=== PATIENT | male | born 1960 | race African-American/Black ===

== ENCOUNTER 2018-08-04 13:02 | Inpatient (IN) | payer OTHER ==
--- NOTE | 2018-08-04 12:51 | HP ---
"CIWA Score - Admission Criteria [facility]ASAS Guidelines: Admission for Medically Managed Detox: Requires at least one of the followin. CIWA greater than 12 2. Seizures within the past 24 hours 3. Delirium tremens within the past 24 hours 4. Hallucinations within the past 24 hours 5. Acute intervention needed for co occurring medical disorder 6. Acute intervention needed for co occurring psychiatric disorder 7. Severe withdrawal that cannot be handled at a lower level of care (continued vomiting, continued diarrhea, abnormal vital signs) requiring intravenous medication and/or fluids 8. Admission ROS [facility] Allergies/Adverse Reactions: Allergies Allergy/AdvReac Type Severity Reaction Status Date / Time No Known Allergies Allergy Verified 08/04/18 14:26 History of Present Illness: Search Terms: Erich Martinez, 1960 Search Date: 08/04/2018 12:50:48 PM The Drug Utilization Report below displays all of the controlled substance prescriptions, if any, that your patient has filled in the last twelve months. The information displayed on this report is compiled from pharmacy submissions to the Department, and accurately reflects the information as submitted by the pharmacies. This report was requested by: Elise Edmonds | Reference #: [id number] There are no results for the search terms that you entered. Patient History - Substances Abused Alcohol Route: Oral Frequency: 3-6 times per week Amount used: 4-6 12 BOTTLES OF BEER Age of first use: 13 Date of Last Use: 08/02/18 Crack Route: Smoking Frequency: Daily Amount used: $75-$300 Age of first use: 25 Date of Last Use: 08/03/18"
[2018-08-04 13:36] VITALS: BMI 27.9
--- NOTE | 2018-08-04 15:52 | HP ---
"CIWA Score Nausea/Vomitin-Mild Nausea/No Vomiting Muscle Tremors: 4-Moderate,w/Arms Extend Anxiety: 2 Agitation: 1-Slight > Activity Paroxysmal Sweats: 4-Forehead w/Sweat Beads (Facial moisture w/ beads) Orientation: 0-Oriented Tacttile Disturbances: 0-None Auditory Disturbances: 0-None Visual Disturbances: 0-None Headache: 0-None Present CIWA-Ar Total Score: 12 - Admission Criteria OASAS Guidelines: Admission for Medically Managed Detox: Requires at least one of the followin. CIWA greater than 12 2. Seizures within the past 24 hours 3. Delirium tremens within the past 24 hours 4. Hallucinations within the past 24 hours 5. Acute intervention needed for co occurring medical disorder 6. Acute intervention needed for co occurring psychiatric disorder 7. Severe withdrawal that cannot be handled at a lower level of care (continued vomiting, continued diarrhea, abnormal vital signs) requiring intravenous medication and/or fluids 8. Patient presents the following: CIWA greater than 12 Admission Criteria Met: Admission criteria met Admission ROS S - HPI Chief Complaint: Here for alcohol withdrawal. Allergies/Adverse Reactions: Allergies Allergy/AdvReac Type Severity Reaction Status Date / Time No Known Allergies Allergy Verified 08/04/18 14:26 History of Present Illness: This is the first admission for this 58 yom who presents for alcohol and crack detox. Alcohol use began at age 13. Crack/cocaine use began at age 25. Nicotine use began at age 14. Denies other substance use. Denies blackouts or seizures. Longest length of sobriety 7 years, States some depression - denies thoughts of harming self or others. States fell last night and hurt (L) knee. Pain in knee '7'. Syphillis . States treated. PUD - resolved. Denies hx HTN, although B/P is elevated. Search Terms: Erich Martinez, 1960 Search Date: 08/04/2018 12:50:48 PM The Drug Utilization Report below displays all of the controlled substance prescriptions, if any, that your patient has filled in the last twelve months. The information displayed on this report is compiled from pharmacy submissions to the Department, and accurately reflects the information as submitted by the pharmacies. This report was requested by: Elise Edmonds | Reference #: [id number] There are no results for the search terms that you entered. Exam Limitations: No Limitations - Ebola screening Have you traveled outside of the country in the last 21 days: No (N) Have you had contact with anyone from an Ebola affected area: No Have you been sick,other than usual withdrawal symptoms: No Do you have a fever: No - Review of Systems Constitutional: Diaphoresis, Changes in sleep (Difficulty sleeping last couple of days) EENT: reports: Cataracts ((L) eye), Blurred Vision, Dental Problems (Missing. No pasin. Chews and swallows ok.) Respiratory: reports: No Symptoms reported Cardiac: reports: No Symptoms Reported GI: reports: Constipated (No BM x 4-5 days), Nausea (Cramping) : reports: No Symptoms Reported Musculoskeletal: reports: Joint Pain ((L) knee r/t recent fall. Sharp and a '7'. ) Integumentary: reports: No Symptoms Reported Neuro: reports: Tremors Endocrine: reports: Increased Thirst Hematology: reports: No Symptoms Reported Psychiatric: reports: Judgement Intact, Orientated x3, Agitated, Anxious, Depressed (Denies thoughts of harming self) Patient History - Patient Medical History Hx Asthma: No Hx Chronic Obstructive Pulmonary Disease (COPD): No Hx Cardiac Disorders: No Hx Hypertension: No Hx Seizures: No Hx Diabetes: No Hx Gastrointestinal Disorders: Yes (PEPTIC ULCER SINCE 1996 - resolved at this time) Hx Genitourinary Disorders: No Hx Sexually Transmitted Disorders: No Hx Renal Disease (ESRD): No Hx Depression: No Hx Suicide Attempt: No Hx Schizophrenia: No - Patient Surgical History Past Surgical History: Yes Hx Neurologic Surgery: No Hx Cataract Extraction: Yes (LEFT EYE CATARACT REMOVAL 1997) Hx Cardiac Surgery: No Hx Lung Surgery: No Hx Breast Surgery: No Hx Breast Biopsy: No Hx Abdominal Surgery: Yes (UMBILICAL HERNIA REMOVAL AT 8 Y.O.) Hx Appendectomy: No Hx Cholecystectomy: No Hx Genitourinary Surgery: No Hx Section: No Hx Orthopedic Surgery: Yes (LEFT ANKLE FRACTURE X 7, TORN LIGAMENT X5) Other Surgical History: PEPTIC ULCER IN 1996 Anesthesia Reaction: No - PPD History Previous Implant?: Yes Documented Results: Negative w/o proof Implanted On Prior R Admission?: No PPD to be Administered?: Yes - Smoking Cessation Smoking history: Current every day smoker Have you smoked in the past 12 months: No Aproximately how many cigarettes per day: 20 Cigars Per Day: 0 Hx Chewing Tobacco Use: No Initiated information on smoking cessation: Yes 'Breaking Loose' booklet given: 08/04/18 - Substance & Tx. History Hx Alcohol Use: Yes Hx Substance Use: Yes Substance Use Type: Alcohol, Cocaine Hx Substance Use Treatment: Yes ([facility] 20 yrs [facility], ) - Substances Abused Alcohol Route: Oral Frequency: 3-6 times per week Amount used: 4-6 12 BOTTLES OF BEER Age of first use: 13 Date of Last Use: 08/02/18 Crack Route: Smoking Frequency: Daily Amount used: $75-$300 Age of first use: 25 Date of Last Use: 08/03/18 Admission Physical Exam S - Vital Signs Vital Signs: Vital Signs - 24 hr 08/04/18 13:28 Temperature 97.5 F L Pulse Rate 68 Respiratory 20 Rate Blood Pressure 154/94 - Physical General Appearance: Yes: Nourished, Appropriately Dressed, Mild Distress, Tremorous, Sweating, Anxious HEENTM: Yes: EOMI (slight jerking movement of eyes on lateral gaze), Hearing grossly Normal, Normal Voice, ARNOLD, Pharynx Normal, Nasal Congestion Respiratory: Yes: Lungs Clear, Normal Breath Sounds, No Respiratory Distress, Other (Spontaneous cough - non-productive) Neck: Yes: No masses,lesions,Nodules, Supple Breast: Yes: Breast Exam Deferred Cardiology: Yes: Regular Rhythm, Regular Rate, S1, S2, Murmur (No edema. No SOB. No chest pain.) Abdominal: Yes: Soft, Increased Bowel Sounds Genitourinary: Yes: Within Normal Limits Back: Yes: Normal Inspection Musculoskeletal: Yes: full range of Motion, Gait Steady, Joint swelling ((L) knee tender to touch, w/ slight swelling and increased erythema. FROM. FWB.) Extremities: Yes: Normal Capillary Refill, Normal Range of Motion, Tremors Neurological: Yes: cell coverer II-XII NML intact (slight jerking movement of eyes on lateral gaze), Fully Oriented, Alert, Motor Strength 5/5, Normal Mood/Affect Integumentary: Yes: Normal Color, Dry, Warm Lymphatic: Yes: Within Normal Limits - Diagnostic (1) Alcohol dependence with uncomplicated withdrawal Current Visit: Yes Status: Acute (2) Nicotine dependence, uncomplicated Current Visit: Yes Status: Acute Qualifiers: Nicotine product type: cigarettes Qualified Code(s): F17.210 - Nicotine dependence, cigarettes, uncomplicated (3) Knee contusion Current Visit: Yes Status: Chronic Qualifiers: Encounter type: subsequent encounter Laterality: left Qualified Code(s): S80.02XD - Contusion of left knee, subsequent encounter Comment: Skin intact (4) History of syphilis Current Visit: No Status: Resolved Comment: Treated in . (5) Crack cocaine use Current Visit: Yes Status: Chronic (6) Constipation Current Visit: Yes Status: Acute Qualifiers: Constipation type: unspecified constipation type Qualified Code(s): K59.00 - Constipation, unspecified Cleared for Admission [facility] - Detox or Rehab [facility] Level of Care: Medically Managed Detox Regimen/Protocol: Librium [facility] Breath Alcohol Content Breath Alcohol Content: 0 Urine Drug Screen - Results Drug Screen Negative: No Urine Drug Screen Results: JAVIER-Cocaine"
[2018-08-04] MEDS ORDERED: NICOTINE POLACRILEX 2 MG GUM BUC PRN (17:34)
[2018-08-04] MEDS ORDERED: IBUPROFEN 400 MG TABLET (FP) PO PRN (17:34)
[2018-08-04] MEDS ORDERED: LOPERAMIDE HCL 2 MG CAPSULE PO PRN (17:34)
[2018-08-04] MEDS ORDERED: MAG HYDROX/AL HYDROX/SIMETH 30 ML UNIT-DOSE CUP PO PRN (17:34)
[2018-08-04] MEDS ORDERED: MAGNESIUM CITRATE 300 ML BOTTLE PO PRN (17:34)
[2018-08-04] MEDS ORDERED: MENTHOL/PHENOL 1 EACH UD MM PRN (17:34)
[2018-08-04] MEDS ORDERED: MAGNESIUM HYDROX 2400MG/30ML ORAL SUSPENSION 30 ML CUP PO PRN (17:34)
[2018-08-04] MEDS ORDERED: chlordiazePOXIDE HCL 25 MG CAPSULE PO PRN (17:34)
[2018-08-04] MEDS ORDERED: ACETAMINOPHEN 325 MG TABLET (FP) PO PRN (17:34)
[2018-08-04] MEDS ORDERED: POLYETHYLENE GLYCOL 3350 119 GM BTL PO ONE (17:38)
[2018-08-04] MEDS ORDERED: MELATONIN 5 MG TABLETS PO PRN (22:00)
[2018-08-04] MEDS: DOCUSATE SODIUM 100 MG CAPSULE (FP) PO SCH (23:39)
[2018-08-04] MEDS: chlordiazePOXIDE HCL 25 MG CAPSULE PO SCH (23:40)
[2018-08-04] MEDS: THIAMINE HCL 100 MG TABLET (FP) PO SCH (23:40)
[2018-08-05] MEDS: DOCUSATE SODIUM 100 MG CAPSULE (FP) PO SCH ×3 (06:18→22:29)
[2018-08-05] MEDS: chlordiazePOXIDE HCL 25 MG CAPSULE PO SCH ×4 (06:18→22:30)
[2018-08-05] MEDS: guaiFENesin 200 MG/10 ML 10 ML UNIT-DOSE CUPS PO PRN (06:20)
[2018-08-05] MEDS: PRENATAL VITAMINS W/ FOLIC ACID TABLET (FP) PO SCH (10:21)
[2018-08-05 10:28] LABS: HEMATOCRIT 40.2 % (35.4-49); HEMOGLOBIN 12.7 GM/dL (11.7-16.9); MCHC 31.6 g/dl (32.0-35.9); MEAN CELL VOLUME 82.3 fl (80-96); MEAN PLT VOLUME 8.7 fl (7.5-11.1); PLATELET COUNT 260 K/MM3 (134-434); RBC 4.88 M/mm3 (4.00-5.60)
[2018-08-05] MEDS: NICOTINE 21 MG/24 HOURS TOPICAL PATCH TD SCH (10:32)
--- NOTE | 2018-08-05 10:39 | PN ---
S CIWA - CIWA Score Nausea/Vomitin-No Nausea/No Vomiting Muscle Tremors: 3 Anxiety: 3 Agitation: 3 Paroxysmal Sweats: 3 Orientation: 0-Oriented Tacttile Disturbances: 0-None Auditory Disturbances: 0-None Visual Disturbances: 0-None Headache: 0-None Present CIWA-Ar Total Score: 12 BHS Progress Note (SOAP) Subjective: sweats shakes chills body aches interrupted sleep Objective: 08/05/18 10:38 Vital Signs Temperature 97.9 F 08/05/18 09:33 Pulse Rate 73 08/05/18 09:33 Respiratory Rate 18 08/05/18 09:33 Blood Pressure 126/69 08/05/18 09:33 O2 Sat by Pulse Oximetry (%) Laboratory Tests 08/05/18 07:30 WBC 5.0 RBC 4.88 Hgb 12.7 Hct 40.2 MCV 82.3 MCH 26.0 MCHC 31.6 L RDW 15.0 Plt Count 260 MPV 8.7 rest of labs pending aaox3 ambulating no acute distress Assessment: 08/05/18 10:38 withdrawal sx Plan: continue detox increase fluids labs pending
[2018-08-05 10:52] LABS: ALBUMIN 3.3 g/dl (3.4-5.0); ALK PHOS 75 U/L (45-117); ANION GAP 8 MMOL/L (8-16); BILIRUBIN,TOTAL 0.5 mg/dL (0.2-1); BLOOD UREA NITROGEN 13 mg/dL (7-18); CALCIUM 8.7 mg/dL (8.5-10.1); CHLORIDE 108 mmol/L (98-107); CO2 26 mmol/L (21-32); GLUCOSE,RANDOM 130 mg/dL (74-106); POTASSIUM 3.9 mmol/L (3.5-5.1); SGOT/AST 25 U/L (15-37); SGPT/ALT 30 U/L (13-61); SODIUM 141 mmol/L (136-145); TOT PROT 6.3 g/dl (6.4-8.2)
[2018-08-05] MEDS ORDERED: PNEUMOCOCCAL 23 VACCINE 0.5 ML VIAL IM ONE (12:00)
[2018-08-05] MEDS ORDERED: FLU VACCINE QUAD 60 MCG/0.5 ML (MDV 18-19) IM ONE (12:00)
[2018-08-05] MEDS ORDERED: PNEUMOC 13-VAL CONJ-DIP CRM/PF 0.5 ML DISP.SYRIN IM ONE (12:00)
--- NOTE | 2018-08-05 12:22 | EKG ---
Test Reason : Blood Pressure : / mmHG Vent. Rate : 066 BPM Atrial Rate : 066 BPM P-R Int : 148 ms QRS Dur : 090 ms QT Int : 368 ms P-R-T Axes : 065 049 065 degrees QTc Int : 385 ms NORMAL SINUS RHYTHM NONSPECIFIC T WAVE ABNORMALITY ABNORMAL ECG NO PREVIOUS ECGS AVAILABLE Confirmed by NEWTON FLORES MD ([id number]) on 08/05/2018 12:22:08 PM Referred By: Confirmed By:NEWTON FLORES MD
[2018-08-05] MEDS: THIAMINE HCL 100 MG TABLET (FP) PO SCH (22:29)
[2018-08-06] MEDS: DOCUSATE SODIUM 100 MG CAPSULE (FP) PO SCH ×3 (06:43→22:05)
[2018-08-06] MEDS: chlordiazePOXIDE HCL 25 MG CAPSULE PO SCH ×3 (06:43→17:17)
[2018-08-06] MEDS: PRENATAL VITAMINS W/ FOLIC ACID TABLET (FP) PO SCH (10:22)
[2018-08-06] MEDS: NICOTINE 21 MG/24 HOURS TOPICAL PATCH TD SCH (10:22)
--- NOTE | 2018-08-06 11:42 | PN ---
[facility] CIWA - CIWA Score Nausea/Vomitin-No Nausea/No Vomiting Muscle Tremors: 1-None Visible, but [place] Anxiety: 3 Agitation: 2 Paroxysmal Sweats: 3 Orientation: 0-Oriented Tacttile Disturbances: 0-None Auditory Disturbances: 0-None Visual Disturbances: 0-None Headache: 2-Mild CIWA-Ar Total Score: 11 S Progress Note (SOAP) Subjective: PATIENT C/O MILD HEADACHE, CHILLS, SWEATING AND ANXIETY. Objective: 08/06/18 11:39 Vital Signs Temperature 97.5 F L 08/06/18 09:30 Pulse Rate 58 L 08/06/18 09:30 Respiratory Rate 16 08/06/18 09:30 Blood Pressure 149/76 08/06/18 09:30 O2 Sat by Pulse Oximetry (%) Laboratory Tests 08/05/18 08/05/18 08/05/18 07:30 07:30 07:30 WBC 5.0 RBC 4.88 Hgb 12.7 Hct 40.2 MCV 82.3 MCH 26.0 MCHC 31.6 L RDW 15.0 Plt Count 260 MPV 8.7 Sodium 141 Potassium 3.9 Chloride 108 H Carbon Dioxide 26 Anion Gap 8 BUN 13 Creatinine 1.0 Creat Clearance w eGFR > 60 Random Glucose 130 H Calcium 8.7 Total Bilirubin 0.5 AST 25 ALT 30 Alkaline Phosphatase 75 Total Protein 6.3 L Albumin 3.3 L RPR Titer HIV 1&2 Antibody Screen Negative HIV P24 Antigen Negative 08/05/18 07:30 WBC RBC Hgb Hct MCV MCH MCHC RDW Plt Count MPV Sodium Potassium Chloride Carbon Dioxide Anion Gap BUN Creatinine Creat Clearance w eGFR Random Glucose Calcium Total Bilirubin AST ALT Alkaline Phosphatase Total Protein Albumin RPR Titer Nonreactive HIV 1&2 Antibody Screen HIV P24 Antigen PE: ALERT AND ORIENTED X 3 SKIN WARM AND DRY EXT FULL ROM, MILD TREMORS FELT AMB AD SHIRA +ANXIOUS ABOUT OVERALL HEALTH 08/06/18 11:41 Assessment: 08/06/18 11:40 WITHDRAWAL SX Plan: CONTINUE DETOX ENCOURAGE FLUIDS [place]ISTARIL FOR ANXIETY S[facility]IOR [facility]ARE REHAB RECOMMENDED AND DISCUSSED. REFERRED TO COUNSELOR CONTINUE TO MONITOR
[2018-08-06 16:53] LABS: URINE APPEARANCE CLEAR; URINE BILIRUBIN NEGATIVE (<2.0 mg/dL); URINE COLOR LTYELLOW; URINE GLUCOSE (UA) NEGATIVE (NEGATIVE); URINE KETONE NEGATIVE (NEGATIVE); URINE LEUK ESTERASE NEGATIVE (NEGATIVE); URINE NITRITE NEGATIVE (NEGATIVE); URINE PROTEIN NEGATIVE (NEGATIVE); URINE UROBILINOGEN NEGATIVE mg/dL (0.2-1.0)
[2018-08-06] MEDS: chlordiazePOXIDE 5 MG CAPSULE PO SCH (22:05)
[2018-08-06] MEDS: THIAMINE HCL 100 MG TABLET (FP) PO SCH (22:05)
[2018-08-06] MEDS: guaiFENesin 200 MG/10 ML 10 ML UNIT-DOSE CUPS PO PRN (22:06)
[2018-08-07] MEDS: chlordiazePOXIDE 5 MG CAPSULE PO SCH ×3 (06:04→17:25)
[2018-08-07] MEDS: DOCUSATE SODIUM 100 MG CAPSULE (FP) PO SCH ×3 (06:04→22:11)
[2018-08-07] MEDS: NICOTINE 21 MG/24 HOURS TOPICAL PATCH TD SCH (10:19)
[2018-08-07] MEDS: PRENATAL VITAMINS W/ FOLIC ACID TABLET (FP) PO SCH (10:19)
[2018-08-07] MEDS: guaiFENesin 200 MG/10 ML 10 ML UNIT-DOSE CUPS PO PRN ×2 (10:23→22:11)
--- NOTE | 2018-08-07 15:24 | PN ---
BHS Progress Note (SOAP) Subjective: Sweating. Objective: PATIENT A & O X 3, OBSERVED AMBULATING ON UNIT. IN NO ACUTE DISTRESS. 08/07/18 15:22 Vital Signs Temperature 98.2 F 08/07/18 15:07 Pulse Rate 74 08/07/18 15:07 Respiratory Rate 20 08/07/18 15:07 Blood Pressure 133/76 08/07/18 15:07 O2 Sat by Pulse Oximetry (%) Laboratory Tests 08/05/18 08/05/18 08/05/18 07:30 07:30 07:30 WBC 5.0 RBC 4.88 Hgb 12.7 Hct 40.2 MCV 82.3 MCH 26.0 MCHC 31.6 L RDW 15.0 Plt Count 260 MPV 8.7 Sodium 141 Potassium 3.9 Chloride 108 H Carbon Dioxide 26 Anion Gap 8 BUN 13 Creatinine 1.0 Creat Clearance w eGFR > 60 Random Glucose 130 H Calcium 8.7 Total Bilirubin 0.5 AST 25 ALT 30 Alkaline Phosphatase 75 Total Protein 6.3 L Albumin 3.3 L Urine Color Urine Appearance Urine pH Ur Specific [place] Urine Protein Urine Glucose (UA) Urine Ketones Urine Blood Urine Nitrite Urine Bilirubin Urine Urobilinogen Ur Leukocyte Esterase RPR Titer HIV 1&2 Antibody Screen Negative HIV P24 Antigen Negative 08/05/18 08/06/18 07:30 16:00 WBC RBC Hgb Hct MCV MCH MCHC RDW Plt Count MPV Sodium Potassium Chloride Carbon Dioxide Anion Gap BUN Creatinine Creat Clearance w eGFR Random Glucose Calcium Total Bilirubin AST ALT Alkaline Phosphatase Total Protein Albumin Urine Color Ltyellow Urine Appearance Clear Urine pH 6.0 Ur Specific [place] 1.016 Urine Protein Negative Urine Glucose (UA) Negative Urine Ketones Negative Urine Blood Negative Urine Nitrite Negative Urine Bilirubin Negative Urine Urobilinogen Negative Ur Leukocyte Esterase Negative RPR Titer Nonreactive HIV 1&2 Antibody Screen HIV P24 Antigen LABS NOTED. Assessment: 08/07/18 15:22 WITHDRAWAL SYMPTOMS. Plan: CONTINUE DETOX.
[2018-08-07] MEDS: THIAMINE HCL 100 MG TABLET (FP) PO SCH (22:09)
[2018-08-07] MEDS: chlordiazePOXIDE HCL 10 MG CAPSULE PO SCH (22:11)
[2018-08-08] MEDS: chlordiazePOXIDE HCL 10 MG CAPSULE PO SCH (06:28)
[2018-08-08] MEDS: DOCUSATE SODIUM 100 MG CAPSULE (FP) PO SCH (06:28)
[2018-08-08 09:01] VITALS: BP 138/83; PULSE 73; TEMP 97.3
--- NOTE | 2018-08-08 17:38 | DS ---
[facility] Detox Discharge Summary Admission Date: 08/04/18 Discharge Date: 08/08/18 - History Present History: Alcohol Dependence, Cocaine Dependence Additional Comments: PATIENT REPORTS THAT HE WILL BE MOVING TO [place] TO LIVE WITH A FAMILY MEMBER AFTER DISCHARGE FROM DETOX UNIT. PATIENT REPORTS THAT HE LOOK INTO PROGRAM AT LOCAL [place] IN AREA TO WHICH HE IS MOVING FOR AFTERCARE. PATIENT WAS DISCHARGED FROM DETOX UNIT IN STABLE MEDICAL CONDITION. Pertinent Past History: History of Peptic Ulcer (Resolved), History of Knee Contusion, History of Syphillis (Treated), History of Constipation, Nicotine Dependence. - Physical Exam Results Vital Signs: Vital Signs Temperature 97.3 F L 08/08/18 09:01 Pulse Rate 73 08/08/18 09:01 Respiratory Rate 18 08/08/18 09:01 Blood Pressure 138/83 08/08/18 09:01 O2 Sat by Pulse Oximetry (%) Pertinent Admission Physical Exam Findings: WITHDRAWAL SYMPTOMS. Laboratory Tests 08/05/18 08/05/18 08/05/18 07:30 07:30 07:30 WBC 5.0 RBC 4.88 Hgb 12.7 Hct 40.2 MCV 82.3 MCH 26.0 MCHC 31.6 L RDW 15.0 Plt Count 260 MPV 8.7 Sodium 141 Potassium 3.9 Chloride 108 H Carbon Dioxide 26 Anion Gap 8 BUN 13 Creatinine 1.0 Creat Clearance w eGFR > 60 Random Glucose 130 H Calcium 8.7 Total Bilirubin 0.5 AST 25 ALT 30 Alkaline Phosphatase 75 Total Protein 6.3 L Albumin 3.3 L Urine Color Urine Appearance Urine pH Ur Specific [place] Urine Protein Urine Glucose (UA) Urine Ketones Urine Blood Urine Nitrite Urine Bilirubin Urine Urobilinogen Ur Leukocyte Esterase RPR Titer HIV 1&2 Antibody Screen Negative HIV P24 Antigen Negative 08/05/18 08/06/18 07:30 16:00 WBC RBC Hgb Hct MCV MCH MCHC RDW Plt Count MPV Sodium Potassium Chloride Carbon Dioxide Anion Gap BUN Creatinine Creat Clearance w eGFR Random Glucose Calcium Total Bilirubin AST ALT Alkaline Phosphatase Total Protein Albumin Urine Color Ltyellow Urine Appearance Clear Urine pH 6.0 Ur Specific [place] 1.016 Urine Protein Negative Urine Glucose (UA) Negative Urine Ketones Negative Urine Blood Negative Urine Nitrite Negative Urine Bilirubin Negative Urine Urobilinogen Negative Ur Leukocyte Esterase Negative RPR Titer Nonreactive HIV 1&2 Antibody Screen HIV P24 Antigen LABS NOTED. - Treatment Hospital Course: Detox Protocol Followed, Detoxed Safely, Responded well, Discharged Condition Good Patient has Accepted a Rehab Referral to: PT MOVING TO [place], WILL CONSIDER [facility]AL [facility] THERE. - Medication Discharge Medications: Ambulatory Orders NK [No Known Home Medication] 08/05/18 - Diagnosis (1) Alcohol dependence with uncomplicated withdrawal Status: Acute (2) Constipation Status: Acute Qualifiers: Constipation type: unspecified constipation type Qualified Code(s): K59.00 - Constipation, unspecified (3) Nicotine dependence, uncomplicated Status: Acute Qualifiers: Nicotine product type: cigarettes Qualified Code(s): F17.210 - Nicotine dependence, cigarettes, uncomplicated (4) Crack cocaine use Status: Chronic (5) Knee contusion Status: Chronic Qualifiers: Encounter type: subsequent encounter Laterality: left Qualified Code(s): S80.02XD - Contusion of left knee, subsequent encounter (6) History of syphilis Status: Resolved - AMA Did Patient Leave Against Medical Advice: No
== END 2018-08-08 09:35 | disposition left against medical advice (07) | DRG 770 ==
LOC: YASAS 13:02 → Y3N 16:16 → Y6N 17:48
PROC: HZ2ZZZZ Detoxification Services for Substance Abuse Treatment (ICD-10-PCS; principal; 2018-08-04)
DX: F10.230 Alcohol dependence with withdrawal, uncomplicated (principal); F14.90 Cocaine use, unspecified, uncomplicated; F17.210 Nicotine dependence, cigarettes, uncomplicated; K59.00 Constipation, unspecified; S80.02XD Contusion of left knee, subsequent encounter; X58.XXXD Exposure to other specified factors, subsequent encounter; Z87.438 Personal history of other diseases of male genital organs
CPT/HCPCS: 36415; 80053; 81003; 85027; 86593; 87389; 90688; 90732; 93005; 93010; G0008; G0009

== ENCOUNTER 2019-04-25 09:02 | Inpatient (IN) | payer OTHER ==
[2019-04-25 09:36] VITALS: BMI 25.0
--- NOTE | 2019-04-25 10:19 | HP ---
CIWA Score Nausea/Vomitin Muscle Tremors: None Anxiety: 2 Agitation: 0-Normal Activity Paroxysmal Sweats: No Perspiration Orientation: 0-Oriented Tacttile Disturbances: 0-None Auditory Disturbances: 0-None Visual Disturbances: 2-Mild Sensitivity Headache: 3-Moderate CIWA-Ar Total Score: 9 - Admission Criteria OASAS Guidelines: Admission for Medically Managed Detox: Requires at least one of the followin. CIWA greater than 12 2. Seizures within the past 24 hours 3. Delirium tremens within the past 24 hours 4. Hallucinations within the past 24 hours 5. Acute intervention needed for co occurring medical disorder 6. Acute intervention needed for co occurring psychiatric disorder 7. Severe withdrawal that cannot be handled at a lower level of care (continued vomiting, continued diarrhea, abnormal vital signs) requiring intravenous medication and/or fluids 8. Admission ROS S - HPI Allergies/Adverse Reactions: Allergies Allergy/AdvReac Type Severity Reaction Status Date / Time No Known Allergies Allergy Verified 04/25/19 09:28 History of Present Illness: 58 y.o. male here requesting detox from etoh use , , reports 6-pk /day , first age of use 13 , sober after d/c from this facility Aug 2018 , returned to [place] February 2019 , relapsed , starts drinking in the mornings , denies blackouts , denies seizures , reports fatigue if not drinking . cocaine : 75-100 $ /day tobacco : daily cannabis - denies denies other illicits denies HTN Psych : denies Exam Limitations: No Limitations - Ebola screening Have you traveled outside of the country in the last 21 days: No Have you had contact with anyone from an Ebola affected area: No Do you have a fever: No - Review of Systems Constitutional: Loss of Appetite EENT: reports: Other (glasses) Respiratory: reports: No Symptoms reported Cardiac: reports: No Symptoms Reported GI: reports: See HPI : reports: No Symptoms Reported Musculoskeletal: reports: Other (left leg pain) Neuro: reports: See HPI, Headache Endocrine: reports: No Symptoms Reported Psychiatric: reports: Orientated x3 Patient History - Patient Medical History Hx Asthma: No Hx Chronic Obstructive Pulmonary Disease (COPD): No Hx Cardiac Disorders: No Hx Hypertension: No Hx Seizures: No Hx Diabetes: No Hx Gastrointestinal Disorders: Yes (PEPTIC ULCER SINCE 1996 - resolved at this time) Hx Genitourinary Disorders: No Hx Sexually Transmitted Disorders: No Hx Renal Disease (ESRD): No Hx Depression: No Hx Suicide Attempt: No Hx Schizophrenia: No - Patient Surgical History Past Surgical History: Yes Hx Neurologic Surgery: No Hx Cataract Extraction: Yes (LEFT EYE CATARACT REMOVAL 1997) Hx Cardiac Surgery: No Hx Lung Surgery: No Hx Breast Surgery: No Hx Breast Biopsy: No Hx Abdominal Surgery: Yes (UMBILICAL HERNIA REMOVAL AT 8 Y.O.) Hx Appendectomy: No Hx Cholecystectomy: No Hx Genitourinary Surgery: No Hx Section: No Hx Orthopedic Surgery: Yes (LEFT ANKLE FRACTURE X 7, TORN LIGAMENT X5) Other Surgical History: PEPTIC ULCER IN 1996 Anesthesia Reaction: No - PPD History Date: 08/06/18 - Smoking Cessation Smoking history: Current every day smoker Have you smoked in the past 12 months: No Aproximately how many cigarettes per day: 20 Cigars Per Day: 0 Hx Chewing Tobacco Use: No Initiated information on smoking cessation: No - Substances abused Alcohol Substance route: Oral Frequency: Daily Amount used: 6x16oz beer Age of first use: 13 Date of last use: 04/24/19 Crack Substance route: Smoking Frequency: Daily Amount used: $75- 100 Age of first use: 25 Date of last use: 04/25/19 Admission Physical Exam BHS - Vital Signs Vital Signs: Vital Signs - 24 hr 04/25/19 09:29 Temperature 97 F L Pulse Rate 68 Respiratory 16 Rate Blood Pressure 154/78 - Physical General Appearance: Yes: No Apparent Distress HEENTM: Yes: EOMI, Hearing grossly Normal, Normocephalic, Normal Voice Respiratory: Yes: Chest Non-Tender, Lungs Clear, Normal Breath Sounds, No Respiratory Distress, No Accessory Muscle Use Neck: Yes: No masses,lesions,Nodules, Trachea in good position Cardiology: Yes: Regular Rhythm, Regular Rate, S1, S2 Abdominal: Yes: Normal Bowel Sounds, Non Tender, Soft Musculoskeletal: Yes: Other (left hip pain started this morning , denies falls . mild tendereness to palpation left gt trochanter , no edema, no deformity , able to stand and walk , IR / ER / adduct .) Neurological: Yes: Fully Oriented, Alert, Motor Strength 5/5 Integumentary: Yes: Warm Breathalyzer - Breathalyzer Breathalyzer: 0 Urine Drug Screen - Test Device Lot number: [id number] Expiration date: 01/03/21 - Control Is test valid?: Yes - Results Drug screen NEGATIVE: No Urine drug screen results: THC-Marijuana, JAVIER-Cocaine Inpatient Rehab Admission - Rehab Decision to Admit Inpatient rehab admission?: No
[2019-04-25] MEDS ORDERED: ACETAMINOPHEN 325 MG TABLET (FP) PO PRN ×2 (10:26)
[2019-04-25] MEDS ORDERED: MAGNESIUM CITRATE 300 ML BOTTLE PO PRN (10:26)
[2019-04-25] MEDS ORDERED: MELATONIN 5 MG TABLETS PO PRN (10:26)
[2019-04-25] MEDS ORDERED: MENTHOL/PHENOL 1 EACH UD MM PRN (10:26)
[2019-04-25] MEDS ORDERED: MAG HYDROX/AL HYDROX/SIMETH 30 ML UNIT-DOSE CUP PO PRN (10:26)
[2019-04-25] MEDS ORDERED: BISMUTH SUBSALICYLATE 524 MG/30 ML UD PO PRN (10:26)
[2019-04-25] MEDS ORDERED: hydrOXYzine PAMOATE 25 MG CAPSULE (FP) PO PRN (10:26)
[2019-04-25] MEDS ORDERED: MAGNESIUM HYDROX 2400MG/30ML ORAL SUSPENSION 30 ML CUP PO PRN (10:26)
[2019-04-25] MEDS: IBUPROFEN 400 MG TABLET (FP) PO PRN ×2 (11:08→20:10)
[2019-04-25] MEDS: diazePAM 5 MG TABLET PO PRN ×2 (11:08→20:11)
[2019-04-25] MEDS: diazePAM 5 MG TABLET PO SCH ×2 (14:42→23:07)
[2019-04-25] MEDS: THIAMINE HCL 100 MG TABLET (FP) PO SCH (23:07)
[2019-04-26] MEDS: diazePAM 5 MG TABLET PO SCH (07:25)
[2019-04-26 11:14] LABS: HEMATOCRIT 39.8 % (35.4-49); HEMOGLOBIN 13.3 GM/dL (11.7-16.9); MCH 27.6 pg (25.7-33.7); MCHC 33.3 g/dl (32.0-35.9); MEAN CELL VOLUME 82.9 fl (80-96); MEAN PLT VOLUME 8.4 fl (7.5-11.1); PLATELET COUNT 235 K/MM3 (134-434); RDW 14.6 % (11.9-15.9); WHITE BLOOD COUNT 4.6 K/mm3 (4.0-10.0)
--- NOTE | 2019-04-26 11:22 | PN ---
S CIWA - CIWA Score Nausea/Vomitin-No Nausea/No Vomiting Muscle Tremors: None Anxiety: 3 Agitation: 2 Paroxysmal Sweats: 3 Orientation: 0-Oriented Tacttile Disturbances: 0-None Auditory Disturbances: 0-None Visual Disturbances: 0-None Headache: 1-Very Mild CIWA-Ar Total Score: 9 BHS Progress Note (SOAP) Subjective: c/o anxiety, headache, sweats, and interrupted sleep. Objective: 04/26/19 11:21 Vital Signs 04/26/19 04/26/19 04:03 06:00 Temperature 97.5 F L Pulse Rate 59 L Respiratory 18 18 Rate Blood Pressure 151/95 Labs pending. Assessment: 04/26/19 11:21 AOX3, in no acute distress. Full ROM, ambulating in the unit. Withdrawal symptoms. Plan: continue detox.
[2019-04-26 11:32] LABS: ALBUMIN 3.3 g/dl (3.4-5.0); BLOOD UREA NITROGEN 12.9 mg/dL (7-18); CALCIUM 8.9 mg/dL (8.5-10.1); CREATININE 0.9 mg/dL (0.55-1.3); POTASSIUM 4.4 mmol/L (3.5-5.1)
[2019-04-26] MEDS: PRENATAL VITAMINS W/ FOLIC ACID TABLET (FP) PO SCH (11:39)
[2019-04-26] MEDS: IBUPROFEN 400 MG TABLET (FP) PO PRN (14:40)
[2019-04-26] MEDS: diazePAM 5 MG TABLET PO PRN (17:12)
[2019-04-26] MEDS: THIAMINE HCL 100 MG TABLET (FP) PO SCH (22:29)
[2019-04-27] MEDS ORDERED: diazePAM 5 MG TABLET PO SCH (06:00)
[2019-04-27] MEDS: PRENATAL VITAMINS W/ FOLIC ACID TABLET (FP) PO SCH (10:05)
[2019-04-27] MEDS: IBUPROFEN 400 MG TABLET (FP) PO PRN (10:05)
[2019-04-27] MEDS ORDERED: LIDOCAINE 5% TOPICAL PATCH TP SCH (12:00)
[2019-04-27 13:58] VITALS: BP 147/82; PULSE 75; TEMP 98.4
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
[2019-04-27] MEDS ORDERED: LIDOCAINE PATCH REMOVAL MC SCH (22:00)
== END 2019-04-27 03:50 | disposition left against medical advice (07) | DRG 770 ==
LOC: YASAS 09:02 → Y6N 10:34
PROVIDERS: ADMIT Surgery; ATTEND Surgery
PROC: HZ2ZZZZ Detoxification Services for Substance Abuse Treatment (ICD-10-PCS; principal; 2019-04-25)
DX: F10.230 Alcohol dependence with withdrawal, uncomplicated (principal); F14.20 Cocaine dependence, uncomplicated; F17.210 Nicotine dependence, cigarettes, uncomplicated; Z87.11 Personal history of peptic ulcer disease
CPT/HCPCS: 36415; 73502-TC-LT-FY; 80053; 85027; 86593; 87389